=== PATIENT | female | born 1970 | race African-American/Black ===

== ENCOUNTER 2018-07-01 11:18 | Emergency (ER) | payer MEDICARE, MEDICAID ==
[2018-07-01 11:34] VITALS: BP 154/90
--- NOTE | 2018-07-01 12:07 | ER Document Report ---
ED Medical Screen (RME) - General Chief Complaint: Flank Pain Stated Complaint: BACK PAIN Time Seen by Provider: 07/01/18 12:02 TRAVEL OUTSIDE OF THE [place] IN LAST 30 DAYS: No - HPI Onset: Other - 47-year-old morbidly obese female who presents for evaluation of atraumatic right-sided back pain which she notes is throbbing in quality. She has not taken anything to try and make it better or worse, she never had this pain before, has had low back pain attributed to a disc which she has been conservatively managing. Denies fevers or chills, emesis, other symptoms such as urinary retention or bowel incontinence no numbness or weakness in the lower extremities. - Related Data Allergies/Adverse Reactions: No Known Allergies Allergy (Unverified 06/04/14 13:25) Past Medical History - General Information source: Patient - Social History Chew tobacco use (# tins/day): No Frequency of alcohol use: Occasional Drug Abuse: None - Past Medical History Cardiac Medical History: Reports: Hx Hypertension Renal/ Medical History: Denies: Hx Peritoneal Dialysis Musculoskeltal Medical History: Reports Hx Arthritis Past Surgical History: Reports: Hx Section - x2, Hx Orthopedic Surgery - left foot, left knee - Immunizations Hx Diphtheria, Pertussis, Tetanus Vaccination: No Review of Systems - Review of Systems -: Yes All other systems reviewed and negative Physical Exam - Vital signs Vitals: Temp Pulse Resp BP Pulse Ox 99.0 F 79 18 154/90 H 100 07/01/18 11:33 07/01/18 11:33 07/01/18 11:33 07/01/18 11:33 07/01/18 11:33 - General General appearance: Appears well In distress: None - HEENT Head: Normocephalic Eyes: Normal Conjunctiva: Normal Cornea: Normal Extraocular movements intact: Yes Eyelashes: Normal Pupils: PERRL - Respiratory Respiratory status: No respiratory distress Chest status: Nontender Breath sounds: Normal Chest palpation: Normal - Cardiovascular Rhythm: Regular Heart sounds: Normal auscultation Murmur: No - Abdominal Inspection: Morbidly Obese - Back Back: Tender - CVA tenderness along the right side - Extremities General upper extremity: Normal inspection, Nontender, Normal ROM, Normal strength General lower extremity: Normal inspection, Nontender, Normal ROM, Normal strength - Neurological Neuro grossly intact: Yes Cognition: Normal Orientation: AAOx4 Ludlow Coma Scale Eye Opening: Spontaneous Frannie Coma Scale Verbal: Oriented Frannie Coma Scale Motor: Obeys Commands Ludlow Coma Scale Total: 15 Speech: Normal Cranial nerves: Normal Cerebellar coordination: Normal Motor strength normal: LUE, RUE, LLE, RLE - Psychological Associated symptoms: Normal affect Course - Re-evaluation Re-evalutation: 07/01/18 12:07 [age]-year-old female with right CVA back pain for the last few days which is dull and aching in quality consistent with patient's previous musculoskeletal low back pain. Concerned she may have a urinary tract infection wanted to be evaluated prior to her return trip to [place] as such we will obtain urinalysis. We will reassess following urinalysis or symptomatic care. - Vital Signs Vital signs: Temp Pulse Resp BP Pulse Ox 99.0 F 79 18 154/90 H 100 07/01/18 11:33 07/01/18 11:33 07/01/18 11:33 07/01/18 11:33 07/01/18 11:33 - Laboratory Laboratory results interpreted by me: 07/01/18 12:10 Urine Nitrite POSITIVE H Doctor's Discharge - Discharge Clinical Impression: UTI (urinary tract infection) Qualifiers: Urinary tract infection type: acute pyelonephritis Qualified Code(s): N10 - Acute pyelonephritis Condition: Good Disposition: HOME, SELF-CARE Instructions: Urinary Tract Infection ([facility]) Additional Instructions: Your seen today in the emergency department for your back pain along the right side, he had evaluation including a physical exam and as well as a urine test, your urine test shows that you do likely have an infection in your urinary tract , potentially in the kidney very likely in the bladder. You should use the prescribed antibiotic as directed, schedule an appointment with your primary physician this week for follow-up. Return for worsening fevers or chills inability to eat or drink or other symptoms. Use ibuprofen to help with your pain at home. Prescriptions: Ciprofloxacin HCl [Cipro 500 mg Tablet] 500 mg PO BID #10 tablet Forms: Elevated Blood Pressure
[2018-07-01 13:34] LABS: APPEARANCE,URINE CLOUDY; BILIRUBIN,URINE NEGATIVE (NEGATIVE); COLOR,URINE YELLOW; GLUCOSE, URINE NEGATIVE (NEGATIVE); KETONES,URINE NEGATIVE (NEGATIVE); LEUKOCYTE ESTERASE,URINE NEGATIVE (NEGATIVE); NITRITE,URINE POSITIVE (NEGATIVE); PROTEIN,URINE NEGATIVE (NEGATIVE); UROBILINOGEN,URINE NEGATIVE mg/dL (<2.0)
== END 2018-07-01 14:51 | disposition home or self-care (01) ==
LOC: ER 11:18
DX: N10 Acute pyelonephritis (principal); M54.5 Low back pain; E66.01 Morbid (severe) obesity due to excess calories; Z68.39 Body mass index [BMI] 39.0-39.9, adult; I10 Essential (primary) hypertension
CPT/HCPCS: 81001; 81025; 87086; 87088; 87186; 99283

== ENCOUNTER 2019-03-27 09:46 | Emergency (ER) | payer OTHER, MEDICARE, MEDICAID ==
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
[2019-03-27] MEDS ORDERED: ACETAMINOPHEN 325 MG TABLET PO ONE (10:53)
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
[2019-03-27 12:13] VITALS: BP 147/94
== END 2019-03-27 12:13 | disposition home or self-care (01) ==
LOC: ER 09:46
DX: S16.1XXA Strain of muscle, fascia and tendon at neck level, initial encounter (principal); S29.012A Strain of muscle and tendon of back wall of thorax, initial encounter; V43.02XA Car driver injured in collision with other type car in nontraffic accident, initial encounter; Y93.89 Activity, other specified; Y92.481 Parking lot as the place of occurrence of the external cause; M47.9 Spondylosis, unspecified; E66.9 Obesity, unspecified; I10 Essential (primary) hypertension; Z79.899 Other long term (current) drug therapy
CPT/HCPCS: 72125; 99283